=== PATIENT | male | born 1980 | race African-American/Black ===

== ENCOUNTER 2017-03-28 01:15 | Emergency (ER) | payer MEDICAID ==
[~2017-03-28] VITALS: Ht 180.3 cm; Wt 81.6 kg
--- NOTE | 2017-03-28 01:38 | NUR ---
initial assessment: pt came from home with c/o cough/general body aches/fever x's 2 days states "i havent tried taking anything over the counter, but was diagnosed with bronchial pneumonia x 2 weeks ago" pt a/o x 4, breathing unlabored, 4/10 general body aches.
[2017-03-28 02:07] VITALS: BP 121/73
== END 2017-03-28 02:08 | disposition home or self-care (01) ==
LOC: ER 01:21
DX: J06.9 Acute upper respiratory infection, unspecified (principal); J45.909 Unspecified asthma, uncomplicated
CPT/HCPCS: 71010; 99283; A4606; Z7610

== ENCOUNTER 2017-03-31 14:56 | Emergency (ER) | payer MEDICAID ==
[~2017-03-31] VITALS: Ht 180.3 cm; Wt 81.6 kg
--- NOTE | 2017-03-31 15:15 | NUR ---
PATIENT PRESENTS TO ER C/O FLU LIKE SYMPTOMS X 4 DAYS AND RASH ON FACE X 2 DAYS. BREATHING EVEN AND UNLABORED. NO SOB. VITALS STABLE. SAFETY AND COMFORT MEASURES IN PLACE. AWAITING MD ORDERS.
--- NOTE | 2017-03-31 15:43 | NUR ---
Patient discharged to home in stable condition. Written and verbal after care instructions given. Patient verbalizes understanding of instruction.
[2017-03-31 15:54] VITALS: BP 118/52
== END 2017-03-31 15:43 | disposition home or self-care (01) ==
LOC: ER 15:00
DX: B34.9 Viral infection, unspecified (principal); J45.909 Unspecified asthma, uncomplicated
CPT/HCPCS: A4606; Z7610

== ENCOUNTER 2017-05-05 22:51 | Emergency (ER) | payer MEDICAID ==
[~2017-05-05] VITALS: Ht 180.3 cm; Wt 77.1 kg
[2017-05-05 23:00] VITALS: BP 123/69
--- NOTE | 2017-05-06 00:06 | NUR ---
CALLED PT IN [facility], NO REPONSE
== END 2017-05-06 00:07 | disposition left against medical advice (07) ==
LOC: ER 22:51
DX: Z53.21 Procedure and treatment not carried out due to patient leaving prior to being seen by health care provider (principal)
CPT/HCPCS: A4606; Z7610

== ENCOUNTER 2017-05-31 07:43 | Emergency (ER) | payer MEDICAID ==
[~2017-05-31] VITALS: Ht 180.3 cm; Wt 77.1 kg
[2017-05-31 07:43] VITALS: BP 126/66
== END 2017-05-31 08:20 | disposition home or self-care (01) ==
LOC: ER 07:47
DX: H10.9 Unspecified conjunctivitis (principal)
CPT/HCPCS: 99281; A4606; Z7610; Z7502

== ENCOUNTER 2018-02-08 16:51 | Emergency (ER) | payer MEDICAID ==
[~2018-02-08] VITALS: Ht 180.3 cm; Wt 86.2 kg
[2018-02-08 16:51] VITALS: BP 132/76
[2018-02-08] MEDS ORDERED: PENICILLIN G BENZATHINE 2.4 MMU/4 ML ML IM ONE ×2 (17:27→17:30)
--- NOTE | 2018-02-08 18:30 | NUR ---
NO ADVERSE REACTION TO ANTIBIOTICS NOTED. D/C HOME IN STABLE CONDITION.
== END 2018-02-08 18:31 | disposition home or self-care (01) ==
LOC: ER 16:53
DX: Z20.2 Contact with and (suspected) exposure to infections with a predominantly sexual mode of transmission (principal)
CPT/HCPCS: 36415; 86593 ×2; 86780; 96372; 99284; A4606; J0558; Z7610

== ENCOUNTER 2018-02-28 19:25 | Emergency (ER) | payer MEDICAID ==
--- NOTE | 2018-02-28 19:35 | NUR ---
CALLED PT NAME IN [facility]. NO RESPONSE. WILL FOLLOW UP.
--- NOTE | 2018-02-28 19:53 | NUR ---
CALLED PT NAME X3 IN WAITING ROOM, NO RESPONSE. WILL FOLLOW UP.
--- NOTE | 2018-02-28 20:15 | NUR ---
CALLED PT NAME X3. NO ONE RESPONDED IN WAITING ROOM.
== END 2018-02-28 20:16 | disposition left against medical advice (07) ==
LOC: ER 19:27
DX: Z53.21 Procedure and treatment not carried out due to patient leaving prior to being seen by health care provider (principal)

== ENCOUNTER 2018-03-08 19:11 | Emergency (ER) | payer MEDICAID ==
[~2018-03-08] VITALS: Ht 180.3 cm; Wt 86.2 kg
[2018-03-08 19:17] VITALS: BP 141/91
[2018-03-08] MEDS ORDERED: IBUPROFEN 400 MG TABLET PO ONE (22:30)
[2018-03-08] MEDS ORDERED: IBUPROFEN 400 MG TABLET ONE (22:40)
--- NOTE | 2018-03-08 22:40 | NUR ---
XRAY AT BEDSIDE.
== END 2018-03-08 23:06 | disposition home or self-care (01) ==
LOC: ER 19:12
DX: S20.212A Contusion of left front wall of thorax, initial encounter (principal); M62.838 Other muscle spasm; V49.49XA Driver injured in collision with other motor vehicles in traffic accident, initial encounter; Y93.89 Activity, other specified; Y92.413 State road as the place of occurrence of the external cause; Y99.8 Other external cause status
CPT/HCPCS: 71045; 99283; A4606; Z7610

== ENCOUNTER 2018-06-08 14:30 | Emergency (ER) | payer MEDICAID ==
[~2018-06-08] VITALS: Ht 180.3 cm; Wt 85.7 kg
[2018-06-08] MEDS ORDERED: ONDANSETRON HCL/PF 4 MG/2 ML VIAL IVP ONE (16:00)
[2018-06-08] MEDS ORDERED: IV NS 0.9% 1,000 ML BAG IV ONE (16:00)
[2018-06-08 16:07] LABS: BASOPHILS % (AUTO) 0.6 % (0.0-2.0); EOSINOPHILS % (AUTO) 2.2 % (0.0-6.0); HEMATOCRIT 45 % (39-51); HEMOGLOBIN 15.5 g/dL (13.5-17.5); LYMPHOCYTES # (AUTO) 1.4 /CMM (0.8-4.8); LYMPHOCYTES % (AUTO) 23.7 % (20.0-44.0); MEAN CORPUSCULAR HGB CONC 35 g/dl (31.0-36.0); MEAN CORPUSCULAR VOLUME 94 fL (80-96); MONOCYTES # (AUTO) 0.6 /CMM (0.1-1.30); MONOCYTES % (AUTO) 9.4 % (2.0-12.0); NEUTROPHILS # (AUTO) 3.9 /CMM (1.8-8.9); NEUTROPHILS % (AUTO) 64.1 % (43.0-81.0); PLATELET COUNT (AUTO) 166 /CMM (150-450); RED BLOOD CELL COUNT(AUTO) 4.81 MIL/uL (4.5-6.0); WHITE BLOOD COUNT (AUTO) 6.1 K/uL (4.3-11.0)
[2018-06-08] MEDS ORDERED: ONDANSETRON HCL/PF 4 MG/2 ML VIAL ONE (16:07)
[2018-06-08 16:35] LABS: CALCIUM, SERUM 8.9 mg/dL (8.5-10.1); CREATININE 1.1 mg/dL (0.6-1.3); POTASSIUM 3.7 mmol/L (3.5-5.1)
[2018-06-08 16:47] LABS: ALBUMIN 3.7 g/dL (3.4-5.0); BILIRUBIN,DIRECT 0.1 mg/dL (0.0-0.2); BILIRUBIN,TOTAL 0.4 mg/dL (0.2-1.0); TOTAL PROTEIN, SERUM 7.5 g/dL (6.4-8.2)
[2018-06-08] MEDS ORDERED: MORPHINE SULFATE INJ 2 MG/ML DISP.SYRIN IV ONE (17:00)
--- NOTE | 2018-06-08 17:00 | NUR ---
Pt states "Feeling better NO nausea" Denies pain await re-evaluation by provider. Status quo reclining in [facility]
[2018-06-08 17:32] LABS: APPEARANCE,URINE Clear (CLEAR); BILIRUBIN,URINE Negative (NEGATIVE); BLOOD, URINE Negative Ery/uL (NEGATIVE); COLOR,URINE Yellow (YELLOW); KETONES,URINE Negative (NEGATIVE); LEUKOCYTE ESTERASE ,URINE Negative (NEGATIVE); NITRITE, URINE Negative (NEGATIVE); PROTEIN,URINE Negative (NEGATIVE); UGLUCOSE Negative (NEGATIVE)
[2018-06-08 17:45] LABS: BACTERIA,URINE None seen /HPF (None Seen); RBC,URINE NONE SEEN /HPF (0-2); SQUAMOUS EPITHELIAL CELL,UR Rare /HPF (None Seen); WBC,URINE 0-2 /HPF (0-3)
[2018-06-08 17:54] VITALS: BP 104/70
--- NOTE | 2018-06-08 17:55 | NUR ---
for discharge- [facility] verbalized understanding Home ambulatory Stable denies pain/nausea
== END 2018-06-08 17:55 | disposition home or self-care (01) ==
LOC: ER 14:31
DX: R10.31 Right lower quadrant pain (principal); R11.2 Nausea with vomiting, unspecified; K90.0 Celiac disease
CPT/HCPCS: 36415; 80048-TC; 80076-TC; 81000-TC; 83690-TC; 85025-TC; A4606; J2405; J7030; J7060; Z7610

== ENCOUNTER 2019-03-06 10:13 | Emergency (ER) | payer MEDICAID ==
[~2019-03-06] VITALS: Ht 167.6 cm; Wt 74.8 kg
[2019-03-06 10:25] VITALS: BP 136/84
== END 2019-03-06 11:40 | disposition home or self-care (01) ==
LOC: ER 10:15
DX: L29.9 Pruritus, unspecified (principal); J45.909 Unspecified asthma, uncomplicated

== ENCOUNTER 2019-03-24 19:23 | Emergency (ER) | payer MEDICAID ==
[~2019-03-24] VITALS: Ht 180.3 cm; Wt 77.1 kg
[2019-03-24 19:30] VITALS: BP 135/76
== END 2019-03-24 22:43 | disposition home or self-care (01) ==
LOC: ER 19:27
DX: K08.89 Other specified disorders of teeth and supporting structures (principal); J06.9 Acute upper respiratory infection, unspecified; M32.9 Systemic lupus erythematosus, unspecified

== ENCOUNTER 2019-04-12 07:26 | Emergency (ER) | payer MEDICAID ==
[~2019-04-12] VITALS: Ht 180.3 cm; Wt 84.4 kg
--- NOTE | 2019-04-12 07:40 | NUR ---
Not feeling well/sore throat/thrush/pain in mid chest hurts w/move, breath. Patient a/ox4, no distress noted, needs attended. Attached to the monitor, changed into gown. Kept comfortable.
--- NOTE | 2019-04-12 07:50 | NUR ---
Dr. Lamb at bedside for eval.
[2019-04-12] MEDS ORDERED: IBUPROFEN 600 MG TABLET PO ONE ×2 (08:21→08:30)
[2019-04-12 08:40] VITALS: BP 135/72
[2019-04-12] MEDS ORDERED: MAG HYDROX/AL HYDROX/SIMETH 30 ML UDC PO ONE (09:00)
[2019-04-12] MEDS ORDERED: FAMOTIDINE (20 MG) 20 MG TABLET PO ONE (09:00)
== END 2019-04-12 08:48 | disposition home or self-care (01) ==
LOC: ER 07:26
DX: J02.9 Acute pharyngitis, unspecified (principal); R07.89 Other chest pain; Z60.2 Problems related to living alone
CPT/HCPCS: 71045-TC

== ENCOUNTER 2019-06-19 09:51 | Emergency (ER) | payer MEDICAID ==
[~2019-06-19] VITALS: Ht 180.3 cm; Wt 84.4 kg
[2019-06-19 09:57] VITALS: BP 136/88
--- NOTE | 2019-06-19 11:43 | NUR ---
Patient discharged to home in stable condition. Written and verbal after care instructions given. Patient verbalizes understanding of instruction.
== END 2019-06-19 11:44 | disposition home or self-care (01) ==
LOC: ER 09:56
DX: Z20.6 Contact with and (suspected) exposure to human immunodeficiency virus [HIV] (principal); M32.9 Systemic lupus erythematosus, unspecified; Z60.2 Problems related to living alone

== ENCOUNTER 2019-07-16 11:25 | Emergency (ER) | payer MEDICAID ==
[~2019-07-16] VITALS: Ht 182.9 cm; Wt 81.6 kg
[2019-07-16 11:27] VITALS: BP 134/79
== END 2019-07-16 11:48 | disposition home or self-care (01) ==
LOC: ER 11:25
DX: R21 Rash and other nonspecific skin eruption (principal); Z60.2 Problems related to living alone

== ENCOUNTER 2019-09-07 23:25 | Emergency (ER) | payer MEDICAID ==
[~2019-09-07] VITALS: Ht 182.9 cm; Wt 81.6 kg
[2019-09-07 23:53] VITALS: BP 141/93
--- NOTE | 2019-09-08 01:39 | NUR ---
Patient discharged to home in stable condition. Written and verbal after care instructions given. Patient verbalizes understanding of instruction.
--- NOTE | 2019-09-08 01:42 | NUR ---
Patient discharged to home in stable condition. Written and verbal after care instructions given. Patient verbalizes understanding of instruction.
== END 2019-09-08 01:43 | disposition home or self-care (01) ==
LOC: ER 23:25
DX: R07.89 Other chest pain (principal); M32.9 Systemic lupus erythematosus, unspecified; J45.909 Unspecified asthma, uncomplicated; Z60.2 Problems related to living alone
CPT/HCPCS: 71045-TC

== ENCOUNTER 2019-11-20 04:22 | Emergency (ER) | payer MEDICAID ==
--- NOTE | 2019-11-20 04:52 | NUR ---
CALLED PT TO BE TRIAGED, NOT IN WAITING ROOM
--- NOTE | 2019-11-20 05:02 | NUR ---
CALLED PT TO BE TRAIGED, NOT IN WAITING ROOM
== END 2019-11-20 05:08 | disposition left against medical advice (07) ==
LOC: ER 04:24
DX: Z53.21 Procedure and treatment not carried out due to patient leaving prior to being seen by health care provider (principal)

== ENCOUNTER 2019-11-20 06:32 | Emergency (ER) | payer MEDICAID ==
[~2019-11-20] VITALS: Ht 182.9 cm; Wt 83.9 kg
--- NOTE | 2019-11-20 06:40 | NUR ---
PT BIBSELF. AAOX4, AMBULATORY WITH STEADY GAIT. C/O SOB AND CP FOR 3 WEEKS. WAS GIVEN ANXIETY MEDS BUT DID NOT WORK. PLACED ON MONITOR AND PULSE OX. VSS. NO ACUTE DISTRESS NOTED. 100% ON ROOM AIR.
--- NOTE | 2019-11-20 06:53 | NUR ---
Joe shaw in EDM - 11/20/19 at 0654 by PETRA PT BIB [facility] C/O MID STERNAL CHEST DISCOMFORT X4 WEEKS TO ER BED 10 VSS AWAITING EKG
--- NOTE | 2019-11-20 06:55 | NUR ---
EMT AT BEDSIDE FOR EKG
[2019-11-20 08:11] LABS: CALCIUM, SERUM 9.2 mg/dL (8.5-10.1); CARBON DIOXIDE 26 mmol/L (21-32); CHLORIDE 104 mmol/L (98-107); CREATININE 1.1 mg/dL (0.6-1.3); GLUCOSE 98 mg/dL (74-106); POTASSIUM 3.6 mmol/L (3.5-5.1); SODIUM SERUM 141 mmol/L (136-145); UREA NITROGEN, BLOOD 9 mg/dL (7-18)
[2019-11-20 08:31] LABS: BASOPHILS % (AUTO) 0.5 % (0.0-2.0); EOSINOPHILS % (AUTO) 5.1 % (0.0-6.0); HEMATOCRIT 46 % (39-51); HEMOGLOBIN 15.7 g/dL (13.5-17.5); LYMPHOCYTES # (AUTO) 2.8 /CMM (0.8-4.8); LYMPHOCYTES % (AUTO) 40.8 % (20.0-44.0); MEAN CORPUSCULAR HGB CONC 34 g/dl (31.0-36.0); MEAN CORPUSCULAR VOLUME 94 fL (80-96); MONOCYTES # (AUTO) 0.9 /CMM (0.1-1.30); MONOCYTES % (AUTO) 12.6 % (2.0-12.0); NEUTROPHILS # (AUTO) 2.8 /CMM (1.8-8.9); PLATELET COUNT (AUTO) 205 /CMM (150-450); RED BLOOD CELL COUNT(AUTO) 4.89 MIL/uL (4.5-6.0); WHITE BLOOD COUNT (AUTO) 6.8 K/uL (4.3-11.0)
--- NOTE | 2019-11-20 09:05 | NUR ---
provided w breakfast tray
--- NOTE | 2019-11-20 09:09 | NUR ---
Patient states he lives in [facility], no permanent place to stay. Patient given written and verbal discharge instructions. Patient verbalizes understanding of instructions. Patient is ambulatory with steady gait. Refuses offer of [facility] placement. Patient given list of available shelters in surrounding area. Discharged in proper clothing, all belongings with patient, name band removed
--- NOTE | 2019-11-20 09:09 | NUR ---
Joe shaw in [facility] - 11/20/19 at 0909 by SARAH Patient discharged to home in stable condition. Written and verbal after care instructions given. Patient verbalizes understanding of instruction.
[2019-11-20 09:11] VITALS: BP 140/89
== END 2019-11-20 09:11 | disposition home or self-care (01) ==
LOC: ER 06:32
DX: R07.89 Other chest pain (principal); F41.9 Anxiety disorder, unspecified
CPT/HCPCS: 36415; 71045-TC; 80048-TC; 84484-TC; 85025-TC

== ENCOUNTER 2020-09-03 04:15 | Emergency (ER) | payer MEDICAID ==
[~2020-09-03] VITALS: Ht 182.9 cm; Wt 81.6 kg
[2020-09-03 04:15] VITALS: BP 139/88
[2020-09-03] MEDS ORDERED: AMOX1TAB16 PO (04:33)
== END 2020-09-03 04:38 | disposition home or self-care (01) ==
LOC: ER 04:15
DX: K08.89 Other specified disorders of teeth and supporting structures (principal); F41.9 Anxiety disorder, unspecified; Z60.2 Problems related to living alone

== ENCOUNTER 2020-10-11 07:19 | Emergency (ER) | payer MEDICAID ==
[~2020-10-11] VITALS: Ht 182.9 cm; Wt 90.7 kg
[~2020-10-11 07:19] MED LIST: AMOX1TAB16 PO
[2020-10-11] MEDS ORDERED: MECLIZINE HCL 12.5 MG TABLET PO ONE (08:00)
[2020-10-11] MEDS ORDERED: IV NS 0.9% 1,000 ML BAG IV ONE (08:00)
[2020-10-11] MEDS ORDERED: MECLIZINE HCL 25 MG TABLET ONE (08:11)
--- NOTE | 2020-10-11 08:17 | NUR ---
c/o weakness and lightheadedness x 2 days. PT AAOX4, VSS. RR EVEN & UNLABORED. DENIES CP, SOB, N/V, NUMBNESS/WEAKNESS AT THIS TIME. PT SEEN & EVAL'D BY DR. DUPONT. WILL CONT TO MONITOR.
[2020-10-11 08:25] LABS: BASOPHILS % (AUTO) 0.5 % (0.0-2.0); EOSINOPHILS % (AUTO) 3.3 % (0.0-6.0); HEMATOCRIT 46 % (39-51); HEMOGLOBIN 15.6 g/dL (13.5-17.5); LYMPHOCYTES % (AUTO) 36.1 % (20.0-44.0); MEAN CORPUSCULAR HGB CONC 34 g/dl (31.0-36.0); MEAN CORPUSCULAR VOLUME 92 fL (80-96); MONOCYTES # (AUTO) 0.6 /CMM (0.1-1.30); MONOCYTES % (AUTO) 10.7 % (2.0-12.0); NEUTROPHILS # (AUTO) 2.7 /CMM (1.8-8.9); NEUTROPHILS % (AUTO) 49.4 % (43.0-81.0); PLATELET COUNT (AUTO) 188 /CMM (150-450); RED BLOOD CELL COUNT(AUTO) 4.99 MIL/uL (4.5-6.0); WHITE BLOOD COUNT (AUTO) 5.5 K/uL (4.3-11.0)
[2020-10-11 08:47] LABS: ALANINE AMINOTRANSFERASE 32 U/L (12-78); ALBUMIN 3.8 g/dL (3.4-5.0); ALKALINE PHOSPHATASE 78 U/L (46-116); ASPARTATE AMINOTRANSFERASE 38 U/L (15-37); BILIRUBIN,DIRECT 0.2 mg/dL (0.0-0.2); CALCIUM, SERUM 9.3 mg/dL (8.5-10.1); CARBON DIOXIDE 24 mmol/L (21-32); CHLORIDE 105 mmol/L (98-107); CREATININE 1.1 mg/dL (0.6-1.3); GLUCOSE 94 mg/dL (74-106); POTASSIUM 3.8 mmol/L (3.5-5.1); SODIUM SERUM 142 mmol/L (136-145); TOTAL PROTEIN, SERUM 7.8 g/dL (6.4-8.2); UREA NITROGEN, BLOOD 11 mg/dL (7-18)
--- NOTE | 2020-10-11 09:39 | NUR ---
Patient discharged to home in stable condition. Written and verbal after care instructions given. Patient verbalizes understanding of instruction. IV removed. Catheter intact and site benign. Pressure and 4x4 applied to site. No bleeding noted.
[2020-10-11 09:40] VITALS: BP 137/84
== END 2020-10-11 09:41 | disposition home or self-care (01) ==
LOC: ER 07:19
DX: R42 Dizziness and giddiness (principal); F41.9 Anxiety disorder, unspecified; Z60.2 Problems related to living alone; Z79.899 Other long term (current) drug therapy
CPT/HCPCS: 36415; 71045; 80048; 80076; 82550; 82553; 84484; 85025; 85730; 93005; 96360; 99285; J7030; J8597